=== PATIENT | female | born 1975 | race Caucasian/White ===

== ENCOUNTER 2016-04-21 21:29 | Inpatient (IN) | payer OTHER ==
[~2016-04-21] VITALS: Ht 160 cm; Wt 71.1 kg
[2016-04-21] MEDS ORDERED: LORazepam 1 MG TAB PO ONE (21:45)
[2016-04-21 22:06] VITALS: BP 159/85; PULSE 90; RESP 20; TEMP 98.6; O2SAT 100
[2016-04-21] MEDS ORDERED: BIRTH CONTROL (22:16)
[2016-04-21] MEDS ORDERED: BUPR75TA PO (22:16)
[2016-04-21] MEDS ORDERED: LISI2.5T3 PO (22:16)
[2016-04-21] MEDS ORDERED: TRAZ100T4 PO (22:16)
[2016-04-21] MEDS ORDERED: CYMB60CA PO (22:16)
[2016-04-21] MEDS ORDERED: TOPA100T11 PO (22:16)
[2016-04-21] MEDS ORDERED: FLUO40CA PO (22:16)
[2016-04-21 22:45] LABS: BASOPHIL % 0.2 % (0.0-2.0); EOSINOPHIL % 0.5 % (0.0-4.0); HEMATOCRIT 36.2 % (35.0-46.0); HEMO FLAGS DIFF FINAL; LYMPH % 9.4 % (9.0-44.0); LYMPHOCYTE # 0.9 TH/MM3 (1.0-4.8); MEAN CELL VOLUME 89.6 FL (80.0-100.0); MEAN CORPUSCULAR HEMOGLOBIN 30.7 PG (27.0-34.0); MEAN CORPUSCULAR HGB CONC 34.2 % (32.0-36.0); MONO % 6.9 % (0.0-8.0); PLATELET COUNT 182 TH/MM3 (150-450); RED BLOOD COUNT 4.04 MIL/MM3 (4.00-5.30); RED CELL DISTRIBUTION WIDTH 12.1 % (11.6-17.2); WHITE BLOOD COUNT 9.6 TH/MM3 (4.0-11.0)
[2016-04-21 23:10] LABS: ALT (GPT) 18 U/L (10-53); ANION GAP 10 MEQ/L (5-15); AST (GOT) 12 U/L (15-37); BICARBONATE 24.4 MEQ/L (21.0-32.0); BLOOD UREA NITROGEN 13 MG/DL (7-18); CHLORIDE 105 MEQ/L (98-107); GLOMERULAR FILTRATION RATE 74 ML/MIN (>89); SODIUM (NA) 139 MEQ/L (136-145)
[2016-04-21 23:12] LABS: ALKALINE PHOSPHATASE 49 U/L (45-117); TOTAL BILIRUBIN ADULT 0.2 MG/DL (0.2-1.0)
[2016-04-21 23:17] LABS: AMPHETAMINE, URINE NEG (NEG); BARBITURATES, URINE NEG (NEG); COCAINE, URINE NEG (NEG)
[2016-04-21 23:19] LABS: BLOOD, URINE NEG (NEG); COMMENT (UR) CULT NOT INDICATED; CULTURE IF INDICATED CULT NOT INDICATED; GLUCOSE,URINE NEG (NEG); KETONE, URINE NEG (NEG); MUCUS URINE FEW /lpf (OCC); NITRITE,URINE NEG (NEG); SQUAMOUS EPITHELIAL CELL URINE 1 /hpf (0-5); URINE COLOR YELLOW (YELLW/STRAW)
[2016-04-21] MEDS: POTASSIUM CHLORIDE 20 MEQ CONTROLLED RELEASE TAB PO ONE ×2 (23:45→23:50)
--- NOTE | 2016-04-21 23:48 | PD ---
HPI Chief Complaint: Psychiatric Symptoms Time Seen by Provider: 20:00 Travel History International Travel<30 days: No Contact w/Intl Traveler<30days: No Traveled to known affect area: No History of Present Illness HPI Patient comes in with reports of psychiatric symptoms. Patient states she took some recreational "marijuana" and had hallucinations any "psychiatric break". Patient has history of anxiety in the past. Patient denies any physical pain. Patient does states she had a large amount of uncontrollable diarrhea but she took some senna earlier today for her chronic constipation. Patient states that this has happened to her before. Currently the patient has no complaints of pain or other constitutional symptoms. She is allergic to azithromycin, latex, penicillin, and sulfa. PFSH Past Medical History Anxiety: Yes Depression: Yes Medical other: Yes (OCIPITAL NEURALIGIA , CHRONIC CONSTIPATION ) Thyroid Disease: Yes (HYPO ) Influenza Vaccination: Yes ?: Unknown Past Surgical History Tonsillectomy: Yes Other Surgery: Yes (BOWEL RESECTION, ANAL PROLAPSE. ANTONIO. HERNIA REPAIR ) Social History Alcohol Use: Yes (SOCIALLY ) Tobacco Use: No Substance Use: Yes (MARIJUANA) Allergies-Medications (Allergen,Severity, Reaction): Coded Allergies: Azithromycin (Verified Allergy, Intermediate, Rash, 04/21/16) Latex (Verified Allergy, Intermediate, Rash, 04/21/16) Penicillin (Verified Allergy, Intermediate, Rash, 04/21/16) Sulfa (Verified Allergy, Intermediate, Rash, 04/21/16) Reported Meds & Prescriptions Reported Meds & Active Scripts Active Reported Trazodone (Trazodone HCl) 100 Mg Tab 100 Mg PO HS Lisinopril 2.5 Mg Tab 2.5 Mg PO DAILY [ Control ] Bupropion HCl 75 Mg Tab 75 Mg PO BID Topamax (Topiramate) 100 Mg Tab 100 Mg PO BID Cymbalta DR (Duloxetine HCl) 60 Mg Capdr 90 Mg PO DAILY Fluoxetine (Fluoxetine HCl) 40 Mg Cap 40 Cap PO DAILY Review of Systems General / Constitutional: No: Fever Eyes: No: Visual changes HENT: No: Headaches Cardiovascular: No: Chest Pain or Discomfort Respiratory: No: Shortness of Breath Gastrointestinal: No: Abdominal Pain Genitourinary: No: Dysuria Musculoskeletal: No: Pain Skin: No Rash Neurologic: No: Weakness Psychiatric: Positive: Anxiety, Disorder of Thought, Substance Abuse, No: Depression Endocrine: No: Polydipsia Hematologic/Lymphatic: No: Easy Bruising Physical Exam Narrative GENERAL: She appears anxious but in no acute distress. SKIN: Warm and dry. Normal color. Normal turgor. HEAD: Atraumatic. Normocephalic. EYES: Pupils equal and round. No scleral icterus. No injection or drainage. ENT: No nasal bleeding or discharge. Mucous membranes pink and moist. Pharynx is normal. NECK: Trachea midline. No JVD. CARDIOVASCULAR: Regular rate and rhythm. RESPIRATORY: No accessory muscle use. Clear to auscultation. Breath sounds equal bilaterally. GASTROINTESTINAL: Abdomen soft, non-tender, nondistended. Hepatic and splenic margins not palpable. MUSCULOSKELETAL: Extremities without clubbing, cyanosis, or edema. No obvious deformities. NEUROLOGICAL: Awake and alert. No obvious cranial nerve deficits. Motor grossly within normal limits. Five out of 5 muscle strength in the arms and legs. Normal speech. PSYCHIATRIC: Appropriate mood and affect; insight and judgment normal. Data Data Last Documented VS Vital Signs Date Time Temp Pulse Resp B/P Pulse Ox O2 Delivery O2 Flow Rate FiO2 04/21/16 22:06 98.6 90 20 159/85 100 Orders Complete Blood Count With Diff (04/21/16 21:41) Comprehensive Metabolic Panel (04/21/16 21:41) Urinalysis - C+S If Indicated (04/21/16 21:41) Drug Screen, Random Urine (04/21/16 21:41) Ed Urine Pregnancytest Poc (04/21/16 21:41) Alcohol (Ethanol) (04/21/16 21:41) Psych Screen (04/21/16 21:41) Lorazepam (Ativan) (04/21/16 21:45) Potassium Chloride (Kcl) (04/21/16 23:45) Labs Laboratory Tests Test 04/21/16 22:17 White Blood Count 9.6 TH/MM3 Red Blood Count 4.04 MIL/MM3 Hemoglobin 12.4 GM/DL Hematocrit 36.2 % Mean Corpuscular Volume 89.6 FL Mean Corpuscular Hemoglobin 30.7 PG Mean Corpuscular Hemoglobin 34.2 % Concent Red Cell Distribution Width 12.1 % Platelet Count 182 TH/MM3 Mean Platelet Volume 10.7 FL Neutrophils (%) (Auto) 83.0 % Lymphocytes (%) (Auto) 9.4 % Monocytes (%) (Auto) 6.9 % Eosinophils (%) (Auto) 0.5 % Basophils (%) (Auto) 0.2 % Neutrophils # (Auto) 8.0 TH/MM3 Lymphocytes # (Auto) 0.9 TH/MM3 Monocytes # (Auto) 0.7 TH/MM3 Eosinophils # (Auto) 0.0 TH/MM3 Basophils # (Auto) 0.0 TH/MM3 CBC Comment DIFF FINAL Differential Comment Urine Color YELLOW Urine Turbidity CLEAR Urine pH 6.0 Urine Specific [place] 1.013 Urine Protein NEG mg/dL Urine Glucose (UA) NEG mg/dL Urine Ketones NEG mg/dL Urine Occult Blood NEG Urine Nitrite NEG Urine Bilirubin NEG Urine Urobilinogen LESS THAN 2.0 MG/DL Urine Leukocyte Esterase NEG Urine RBC LESS THAN 1 /hpf Urine WBC 4 /hpf Urine Squamous Epithelial 1 /hpf Cells Urine Mucus FEW /lpf Microscopic Urinalysis Comment CULT NOT INDICATED Sodium Level 139 MEQ/L Potassium Level 3.0 MEQ/L Chloride Level 105 MEQ/L Carbon Dioxide Level 24.4 MEQ/L Anion Gap 10 MEQ/L Blood Urea Nitrogen 13 MG/DL Creatinine 0.85 MG/DL Estimat Glomerular Filtration 74 ML/MIN Rate Random Glucose 104 MG/DL Calcium Level 8.5 MG/DL Total Bilirubin 0.2 MG/DL Aspartate Amino Transf 12 U/L (AST/SGOT) Alanine Aminotransferase 18 U/L (ALT/SGPT) Alkaline Phosphatase 49 U/L Total Protein 6.7 GM/DL Albumin 3.6 GM/DL Urine Opiates Screen NEG Urine Barbiturates Screen NEG Urine Amphetamines Screen NEG Urine Benzodiazepines Screen NEG Urine Cocaine Screen NEG Urine Cannabinoids Screen POS Ethyl Alcohol Level LESS THAN 3 MG/DL MDM Medical Decision Making Medical Screen Exam Complete: Yes Emergency Medical Condition: Yes Differential Diagnosis Psychiatric symptoms. Hallucinations. Polysubstance use. Narrative Course Patient is felt to be medically stable at time of exam. Psychiatric labs ordered per protocol. Patient is given 1 mg lorazepam by mouth for anxiety. Patient is medically cleared for psychiatric evaluation. Patient is a voluntary psychiatric patient. Diagnosis Primary Impression: Medical clearance for psychiatric admission Condition: Stable Tomer Sidhu Apr 21, 2016 23:48
[2016-04-22] VITALS (7 sets, daily range): BP systolic 120–138; BP diastolic 62–86; PULSE 55–104; RESP 16–18; TEMP 97; O2SAT 98–99
[2016-04-22] MEDS: POTASSIUM CHLORIDE 20 MEQ CONTROLLED RELEASE TAB PO ONE
[2016-04-22] MEDS ORDERED: POTASSIUM BICARBONATE 25 MEQ EFFERVESCENT TAB PO ONE
[2016-04-22] MEDS ORDERED: buprenorphine SL (00:03)
[2016-04-22] MEDS ORDERED: IBUPROFEN 600 MG TAB PO ONE ×2 (00:15→13:30)
[2016-04-22] MEDS ORDERED: oxyCODONE/ACETAMINOPHEN 5 MG/325 MG TAB PO ONE (03:15)
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
[2016-04-22] MEDS ORDERED: OLANZapine 5 MG TAB PO ONE ×2 (12:00→13:30)
[2016-04-22] MEDS: traZODone HCL 100 MG TAB PO SCH (22:18)
[2016-04-22] MEDS: TOPIRAMATE 100 MG TAB PO SCH (22:18)
[2016-04-22] MEDS: buPROPion HCL 75 MG TAB PO SCH (22:18)
[2016-04-23 01:50] VITALS: BP 153/86; PULSE 64; RESP 19; O2SAT 99
[2016-04-23 06:24] VITALS: BP 139/82; PULSE 54; RESP 19; O2SAT 97
[2016-04-23] MEDS: TOPIRAMATE 100 MG TAB PO SCH ×2 (09:00→20:39)
[2016-04-23] MEDS: buPROPion HCL 75 MG TAB PO SCH ×2 (09:00→20:39)
[2016-04-23] MEDS: FLUoxetine HCL 20 MG CAP PO SCH (09:00)
[2016-04-23] MEDS: DULoxetine HCl DR 30 MG CAP PO SCH (09:00)
[2016-04-23] MEDS: LISINOPRIL 5 MG TAB PO SCH (09:00)
[2016-04-23] MEDS ORDERED: ALUMINUM/MAGNESIUM/SIMETH 30 ML CUP PO PRN (09:15)
[2016-04-23] MEDS: risperiDONE 0.5 MG TAB PO SCH ×2 (09:15→20:39)
[2016-04-23] MEDS ORDERED: MAGNESIUM HYDROXIDE SUSP 30 ML CUP PO PRN (09:15)
[2016-04-23] MEDS ORDERED: BENZTROPINE MESYLATE 1 MG TAB PO PRN (09:15)
[2016-04-23] MEDS ORDERED: BENZTROPINE MESYLATE 2 MG/2 ML VIAL IM PRN (09:15)
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
[2016-04-23 10:09] VITALS: BP 139/82
[2016-04-23 13:32] VITALS: BP 143/85; PULSE 74; TEMP 98; O2SAT 98
[2016-04-23] MEDS: hydrOXYzine HCL 50 MG TAB PO PRN ×2 (16:25→22:06)
[2016-04-23 18:43] VITALS: BP 169/94; PULSE 75; RESP 18; O2SAT 100
[2016-04-23] MEDS: traZODone HCL 100 MG TAB PO SCH (20:39)
[2016-04-23] MEDS: ACETAMINOPHEN 325 MG TAB PO PRN (20:49)
[2016-04-24] MEDS: diphenhydrAMINE HCL 50 MG CAP PO PRN ×2 (03:11→22:06)
[2016-04-24] MEDS: hydrOXYzine HCL 50 MG TAB PO PRN ×2 (04:53→17:23)
[2016-04-24 05:45] VITALS: BP 129/83; PULSE 64; RESP 18; TEMP 98.6; O2SAT 100
[2016-04-24 08:05] LABS: ANION GAP 11 MEQ/L (5-15); BICARBONATE 21.8 MEQ/L (21.0-32.0); BLOOD UREA NITROGEN 15 MG/DL (7-18); CHLORIDE 108 MEQ/L (98-107); GLOMERULAR FILTRATION RATE 66 ML/MIN (>89); HDL CHOLESTEROL 55.2 MG/DL (40.0-60.0); LDL CHOLESTEROL 64 MG/DL (0-99); POTASSIUM 3.4 MEQ/L (3.5-5.1); SODIUM (NA) 141 MEQ/L (136-145)
[2016-04-24] MEDS: ETHINYL ESTRADIOL PO SCH (08:30)
[2016-04-24] MEDS: LEVONORGESTREL PO SCH (08:30)
[2016-04-24] MEDS: buPROPion HCL 75 MG TAB PO SCH ×2 (08:31→21:00)
[2016-04-24] MEDS: FLUoxetine HCL 20 MG CAP PO SCH (08:31)
[2016-04-24] MEDS: DULoxetine HCl DR 30 MG CAP PO SCH (08:31)
[2016-04-24] MEDS: TOPIRAMATE 100 MG TAB PO SCH ×2 (08:31→21:00)
[2016-04-24] MEDS: risperiDONE 0.5 MG TAB PO SCH ×2 (08:32→21:00)
[2016-04-24] MEDS: LISINOPRIL 5 MG TAB PO SCH (08:38)
[2016-04-24] MEDS: REMOVE OLD PATCH T-DERMAL SCH (09:00)
[2016-04-24] MEDS ORDERED: BUPRENORPHINE HCL 8 MG SL SCH (09:00)
[2016-04-24] MEDS: NICOTINE 21 MG/24 HR PATCH T-DERMAL SCH (09:03)
--- NOTE | 2016-04-24 12:03 | HHI.PYPN ---
Subjective Remarks This is a second opinion for Dr. Reid. Patient was seen and records were reviewed. Patient is anxious, disorganized with some thought blocking during the interview. She does admit to psychotic behavior before admission including thought that some people to walk into the room with [place]. attributes her behavior to marijuana that may have been laced with something else. She describes a history of OCD and depression but denies a psychotic diagnosis. No positive symptoms elicited today. She denies suicidal ideations thought or plan Objective Alert: Yes [place]: Person (ox4) Mood: Anxious Affect: Other (mood congruent) Memory Intact: Comment (not impaired) Hallucinations: Other (negative) Delusions: Yes Delusion Type: Paranoid Suicidal: Ideation (denies) Homicidal: Ideation (denies) Insight/Judgement Poor Labs Test 04/24/16 07:07 Sodium Level 141 MEQ/L Potassium Level 3.4 MEQ/L Chloride Level 108 MEQ/L Carbon Dioxide Level 21.8 MEQ/L Anion Gap 11 MEQ/L Blood Urea Nitrogen 15 MG/DL Creatinine 0.94 MG/DL Estimat Glomerular Filtration 66 ML/MIN Rate Random Glucose 101 MG/DL Calcium Level 8.4 MG/DL Triglycerides Level 108 MG/DL Cholesterol Level 141 MG/DL LDL Cholesterol 64 MG/DL HDL Cholesterol 55.2 MG/DL Cholesterol/HDL Ratio 2.55 RATIO Vitals/IOs Vital Signs Date Time Temp Pulse Resp B/P Pulse Ox O2 Delivery O2 Flow Rate FiO2 04/24/16 05:45 98.6 64 18 129/83 100 04/23/16 06:24 Room Air Assessment & Plan Problem List: (1) Brief psychotic disorder ICD Code: F23 (2) Substance-induced psychotic disorder with delusions ICD Code: F19.950 Assessment & Plan I agree with the first opinion to continue petition. Criteria include psychosis and disorganized behavior. Patient is on an SNRI and an SSRI, consider medication optimization Justification for Cont. Inpt. Patient will decompensate in a less restrictive setting Saurabh Sow DO Apr 24, 2016 12:02
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
[2016-04-24] MEDS ORDERED: POTASSIUM CHLORIDE 10 MEQ CONTROLLED RELEASE TAB PO ONE (16:00)
[2016-04-24 16:41] LABS: HEMOGLOBIN A1a 1.2 %; HEMOGLOBIN A1b 0.8 %; HEMOGLOBIN Ao 86.2 %; HEMOGLOBIN LA1C 1.9 %; HEMOGLOBIN P3 3.5 %
[2016-04-24 17:57] LABS: ALKALINE PHOSPHATASE 51 U/L (45-117); ALT (GPT) 18 U/L (10-53); ANION GAP 10 MEQ/L (5-15); AST (GOT) 12 U/L (15-37); BLOOD UREA NITROGEN 16 MG/DL (7-18); CHLORIDE 106 MEQ/L (98-107); GLOMERULAR FILTRATION RATE 61 ML/MIN (>89); POTASSIUM 3.9 MEQ/L (3.5-5.1); SODIUM (NA) 140 MEQ/L (136-145); TOTAL BILIRUBIN ADULT 0.2 MG/DL (0.2-1.0)
[2016-04-24 19:08] VITALS: BP 134/87; PULSE 80; RESP 17; TEMP 97.2; O2SAT 98
[2016-04-24] MEDS: PATIENT OWN NARCOTIC MED 1 SL SCH (20:15)
[2016-04-24] MEDS: traZODone HCL 100 MG TAB PO SCH (21:00)
[2016-04-24] MEDS: ACETAMINOPHEN 325 MG TAB PO PRN (22:07)
[2016-04-25] MEDS: ACETAMINOPHEN 325 MG TAB PO PRN (05:30)
[2016-04-25 05:58] VITALS: BP 131/86; PULSE 67; RESP 16; TEMP 97.9
[2016-04-25 07:02] LABS: MAGNESIUM 2.6 MG/DL (1.5-2.5); POTASSIUM 4.4 MEQ/L (3.5-5.1)
[2016-04-25] MEDS: REMOVE OLD PATCH T-DERMAL SCH (09:00)
[2016-04-25] MEDS: PATIENT OWN NARCOTIC MED 1 SL SCH (09:00)
[2016-04-25] MEDS: DULoxetine HCl DR 30 MG CAP PO SCH (09:32)
[2016-04-25] MEDS: ETHINYL ESTRADIOL PO SCH (09:32)
[2016-04-25] MEDS: TOPIRAMATE 100 MG TAB PO SCH (09:32)
[2016-04-25] MEDS: FLUoxetine HCL 20 MG CAP PO SCH (09:32)
[2016-04-25] MEDS: LEVONORGESTREL PO SCH (09:32)
[2016-04-25] MEDS: risperiDONE 0.5 MG TAB PO SCH (09:32)
[2016-04-25] MEDS: LISINOPRIL 5 MG TAB PO SCH (09:33)
[2016-04-25] MEDS: NICOTINE 21 MG/24 HR PATCH T-DERMAL SCH (09:33)
[2016-04-25] MEDS: buPROPion HCL 75 MG TAB PO SCH (09:33)
[2016-04-25] MEDS ORDERED: RISP0.5T20 PO (11:53)
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
== END 2016-04-25 13:35 | disposition home or self-care (01) | DRG 897 ==
LOC: NEPA 21:29 → NEDA 04-23 09:15 → H260 04-23 10:15
PROVIDERS: ADMIT Psychiatry & Neurology Psychiatry; ATTEND Psychiatry & Neurology Psychiatry
DX: F12.150 Cannabis abuse with psychotic disorder with delusions (principal); F23 Brief psychotic disorder; F32.9 Major depressive disorder, single episode, unspecified; E03.9 Hypothyroidism, unspecified; K59.09 Other constipation; F42.9 Obsessive-compulsive disorder, unspecified; E87.6 Hypokalemia; Z88.0 Allergy status to penicillin; Z88.1 Allergy status to other antibiotic agents; Z88.2 Allergy status to sulfonamides; Z91.040 Latex allergy status
CPT/HCPCS: 80048; 80053; 80061; 80307; 80320; 81001; 83036; 83735; 84132; 84703; 85025; 99284; Q0163